=== PATIENT | female | born 1960 | race Caucasian/White ===

== ENCOUNTER 2021-09-26 07:43 | Emergency (ER) | payer OTHER ==
[~2021-09-26] VITALS: Ht 154.9 cm; Wt 86.2 kg
[2021-09-26] MEDS ORDERED: LIPITOR40 M1 PO (08:09)
[2021-09-26] MEDS ORDERED: ZESTRIL10 M1 (08:09)
[2021-09-26] MEDS ORDERED: XARELTO2.5 MG PO (08:09)
== END 2021-09-26 12:05 | disposition home or self-care (01) ==
LOC: ER 07:43
DX: R20.0 Anesthesia of skin (principal); I10 Essential (primary) hypertension